=== PATIENT | male | born 1970 | race Caucasian/White ===

== ENCOUNTER 2017-06-02 15:42 | Emergency (ER) | payer OTHER ==
[2017-06-02 16:28] VITALS: BP 130/87
--- NOTE | 2017-06-02 17:27 | UC ---
Skin Complaint HPI - HPI Summary HPI Summary: 47 yo male with rash x 3 weeks gets pruritic in afternoons no f/c recent nasal congestion no new meds no CARBAJAL no diarrhea - History of Current Complaint Chief Complaint: UCSkin Time Seen by Provider: 06/02/17 17:09 Stated Complaint: RASH FOR 3 WEEKS Hx Obtained From: Patient Onset/Duration: Sudden Onset, Lasting Weeks Timing: Constant Onset Severity: Moderate Current Severity: Moderate Pain Intensity: 0 Pain Scale Used: 0-10 Numeric Character: Pruritus, Redness, Raised Aggravating Factor(s): Other - heat Alleviating Factor(s): Other - wearing shorts Associated Signs & Symptoms: Positive: Rash - Allergy/Home Medications Allergies/Adverse Reactions: Allergies Allergy/AdvReac Type Severity Reaction Status Date / Time Penicillins Allergy Anaphylatic Verified 06/02/17 16:17 Shock Home Medications: Home Medications Fluticasone NASAL SPRAY 50MCG* [Flonase NASAL SPRAY 50MCG*] 2 spray BOTH NARES DAILY 06/02/17 [History Confirmed 06/02/17] Ibuprofen TAB* [Motrin TAB* 400 MG] 400 mg PO Q6H PRN 06/02/17 [History Confirmed 06/02/17] diPHENhydraMINE PO* [Benadryl PO 25 MG TAB*] 25 mg PO Q6H PRN 06/02/17 [History Confirmed 06/02/17] Review of Systems Constitutional: Negative Skin: Rash Eyes: Negative ENT: Sinus Congestion Respiratory: Negative Cardiovascular: Negative Gastrointestinal: Negative Genitourinary: Negative Motor: Negative Neurovascular: Negative Musculoskeletal: Negative Neurological: Negative Psychological: Negative Is Patient Immunocompromised?: No All Other Systems Reviewed And Are Negative: Yes PMH/Surg Hx/FS Hx/Imm Hx Previously Healthy: Yes - Surgical History Surgical History: Yes Surgery Procedure, Year, and Place: 2010 L KNEE SURGERY [facility], RIGHT KNEE 08/20 [facility], APPENDIX 10 YRS OLD, LEFT ARM REPAIR TORN BICEP,. LEFT TKA - Family History Known Family History: Positive: Hypertension - Social History Alcohol Use: Occasionally Substance Use Type: None Smoking Status (MU): Never Smoked Tobacco Type: Smokeless Tobacco Amount Used/How Often: 1.5 PER WEEK Length of Time of Smoking/Using Tobacco: 30 YRS Physical Exam Triage Information Reviewed: Yes Appearance: Well-Appearing, No Pain Distress, Well-Nourished Vital Signs: Initial Vital Signs Temp 97.9 F 06/02/17 16:20 Pulse 103 06/02/17 16:20 Resp 16 06/02/17 16:20 BP 130/87 06/02/17 16:20 Pulse Ox 98 06/02/17 16:20 Vital Signs Reviewed: Yes Eyes: Positive: Conjunctiva Clear ENT: Positive: Normal ENT inspection, Nasal congestion. Negative: Trismus, Muffled voice, Hoarse voice, Uvula midline Neck: Positive: Supple, Nontender, No Lymphadenopathy Respiratory: Positive: Lungs clear, Normal breath sounds, No respiratory distress Cardiovascular: Positive: RRR, No Murmur Abdomen Description: Positive: Nontender, No Organomegaly. Negative: CVA Tenderness (R), CVA Tenderness (L), Distended, Guarding Bowel Sounds: Positive: Present Musculoskeletal: Positive: ROM Intact, Edema @ - dorsum of right hand Neurological: Positive: Alert Psychological Exam: Normal Skin Exam: Other - petechiae UE, coalescent palpable purpura LE Course/Dx - Course Course Of Treatment: advise pt go to ER ([facility]) for blood work. d/w Sarika Faulkner [employer] - Diagnoses Provider Diagnoses: possible vasculitis Discharge - Discharge Plan Condition: Stable Disposition: TRANS HIGHER LVL OF CARE FAC Referrals: No Primary Care Phys,NOPCP [Primary Care Provider] - Additional Instructions: To [facility] ER they are expecting you
== END 2017-06-02 17:27 ==
LOC: UCCORT 15:42
DX: R21 Rash and other nonspecific skin eruption (principal); R09.81 Nasal congestion; Z88.0 Allergy status to penicillin
CPT/HCPCS: 99212; G0463